=== PATIENT | male | born 1955 | race Caucasian/White ===

== ENCOUNTER → 2016-04-02 13:01 | Day surgery (SDC) | payer BC ==
[~2016-04-02 13:01] MED LIST: Buffered Lidocaine 1% SYR 3ML* 3 ML/SYR SYRINGE INTRADERM ONE; Buffered Lidocaine 1% SYR 3ML* 3 ML/SYR SYRINGE ONE; Bupivacaine 0.5% W/EPI SDV* 30 ML VIAL ONE; Dexamethasone IV* 4 MG/ML 1 ML (4 MG) ONE; DiMENhydriNATE IV* 50 MG/ML VIAL IV PUSH PRN; HYDROcodone/ACETAMIN 5-325 MG* 1 TAB PO PRN; HYDROmorphone INJ* 1 MG/ML CARPUJECT SYRINGE IV PRN; Ketorolac INJ* 30 MG/ML 1 ML VIAL ONE; Lidocaine 1% INJ* 10 MG/ML 30 ML SDV ONE; Midazolam* 1 MG/ML 5 ML VIAL (5 MG) ONE; Ondansetron INJ* 2 MG/ML VIAL IV PRN; Ondansetron INJ* 2 MG/ML VIAL ONE; Propofol* 10 MG/ML 20 ML BTL IV PUSH ONE; ceFAZolin 1 GM in Dextrose (*) 1 GM/50 ML BAG IVPB ONE; ceFAZolin 2 GM PREMIX (*) 2 GM/50 ML BAG IVPB ONE; fentaNYL* 50 MCG/ML 2 ML VIAL (100 MCG VIAL) IV PRN; fentaNYL* 50 MCG/ML 2 ML VIAL (100 MCG VIAL) ONE; oxyCODONE TAB* 5 MG TAB PO PRN
--- NOTE | 2016-04-02 15:50 | PN ---
Progress Note - Progress Note Note: Brief Op Note: Preop Dx: Umbilical Hernia Postop Dx: same Procedure: Open repair Umbilical Hernia with mesh Anesthesia: local/MAC Surgeon: Graham Asst: MELISSA Rodriguez EBL: negligible Fluids: one liter crystalloid Drains: none Findings: dictated
[2016-04-02 17:42] VITALS: BP 116/74
--- NOTE | 2016-04-03 07:04 | OP ---
DATE OF OPERATION: 04/02/16 - [facility] DATE OF : 55 SURGEON: Roberto Stevenson MD CHARGER TESTER: MELISSA Barba ANESTHESIOLOGIST: West Da Silva MD ANESTHESIA: General endotracheal. PRE-OP DIAGNOSIS: Umbilical hernia. POST-OP DIAGNOSIS: Umbilical hernia. OPERATIVE PROCEDURE: Open repair of umbilical hernia with mesh. ESTIMATED BLOOD LOSS: Minimal. IV FLUIDS: Crystalloids. SPECIMENS: None. DRAINS: None. COMPLICATIONS: None. COUNTS: Instrument, needle, and sponge counts were correct. DESCRIPTION OF PROCEDURE: The patient was brought to the operating room and placed on the table supine. Sequential compression devices were placed on both lower extremities. The patient was administered intravenous sedation. His abdomen was prepped and dapped in the usual sterile fashion. He received appropriate antibiotics and time-out was performed. Local anesthetic was infiltrated into the skin and soft tissue in the periumbilical region and a curvilinear infraumbilical incision was created. A combination of sharp and blunt dissection and cautery was used to dissect out the umbilical hernia, which was approximately 2 cm. There was some incarcerated fat within this, which was reduced. The umbilical stalk was divided from the anterior abdominal wall and the edges of the hernia defect were identified circumferentially. The Bard circular mesh was used for the repair. This was a small sized 1.7-inch mesh and this was placed into the peritoneal cavity and positioned beneath the defect and the inferior and superior fascial edges were sutured to the mesh tabs, which were then divided. I used a 0 Ti-Cron suture to secure the mesh and then closed the umbilical hernia with the same suture with a [id number] stitch. The umbilical stalk was reapproximated with 3-0 Polysorb to the anterior abdominal wall and then the skin was closed in 2 layers with 3-0 Polysorb and 4-0 Monocryl. The wound was dressed with Steri-Strips and gauze and the patient tolerated the procedure well and was transferred to recovery stable. CC: Lg Cook MD* [id number]/[facility] #: [id number] MTDD
== END | disposition home or self-care (01) ==
LOC: OR 13:01
PROVIDERS: ATTEND Surgery
DX: K42.9 Umbilical hernia without obstruction or gangrene (principal); E06.3 Autoimmune thyroiditis; I10 Essential (primary) hypertension
CPT/HCPCS: C1781; J0690; J1100; J1885; J2250; J2405; J2704; J3010

== ENCOUNTER 2016-06-22 10:31 | Emergency (ER) | payer BC ==
[2016-06-22 10:57] VITALS: BP 138/87
--- NOTE | 2016-06-22 11:03 | UC ---
Skin Complaint HPI - HPI Summary HPI Summary: The patient comes in today for: 1. Tick bite and impetigo: Onset: Tick noticed last night. He has had impetigo of the navel x 2-3 weeks. It is getting better. Palliative/provocative: Touching the area makes it worse. Quality: Soreness Region: Suprapubic and umbilical Severity: 03/26 Time: Constant. Associated symptoms: Fevers: None Discharge: None. * - History of Current Complaint Chief Complaint: UCSkin Time Seen by Provider: 06/22/16 10:43 Stated Complaint: TICK BITE/IMPETIGO Hx Obtained From: Patient - Allergy/Home Medications Allergies/Adverse Reactions: Allergies Allergy/AdvReac Type Severity Reaction Status Date / Time Pollen Extract Allergy Unknown Congestion Verified 06/22/16 10:44 Latex Allergy LATEX Verified 06/22/16 10:44 PAINT-DIFFICULTY BREATHING Home Medications: Home Medications Ibuprofen TAB* [Advil TAB*] 200 mg PO Q6H PRN 06/22/16 [History Confirmed ] Review of Systems Constitutional: Negative Skin: Rash Eyes: Negative ENT: Negative Respiratory: Negative Cardiovascular: Negative Gastrointestinal: Negative Genitourinary: Negative Neurological: Headache All Other Systems Reviewed And Are Negative: Yes PMH/Surg Hx/FS Hx/Imm Hx Previously Healthy: No Endocrine History Of: 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 Denies: Diabetes, Hyperthyroidism, Hypothyroidism, Dyslipidemia Cardiovascular History Of: Reports: Hypertension - CONTROL WITH MEDS Denies: Cardiac Disorders, Pacemaker/ICD, Myocardial Infarction, Congestive Heart Failure, Atrial Fibrillation, Deep Vein Thrombosis, Bleeding Disorders Respiratory History Of: Denies: COPD, Asthma, Bronchitis, Pneumonia, Pulmonary Embolism GI/ History Of: Denies: Gastroesophageal Reflux, Ulcer, Gastrointestinal Bleed, Gall Bladder Disease, Kidney Stones, Diverticulitis, Renal Disease, Urosepsis Neurological History Of: Denies: TIA, CVA, Dementia, Seizures, Migraine Psychological History Of: Denies: Anxiety, Depression, Bipolar Disorder, Schizophrenia, Post Traumatic Stress Disorder Cancer History Of: Denies: Lung Cancer, Colorectal Cancer, Breast Cancer, Prostate Cancer, Cervical Cancer Other History Of: Negative For: HIV, Hepatitis B, Hepatitis C, Anticoagulant Therapy - Aspirin daily. - Surgical History Surgical History: Yes Surgery Procedure, Year, and Place: tonsillectomy as a child. Hernia [facility] Apr 2016 - Family History Known Family History: Positive: Cardiac Disease, Hypertension - Social History Occupation: Employed Full-time Alcohol Use: Daily Alcohol Amount: 1 CIDER OR GLASS OF WINE NIGHTLY Substance Use Type: None Smoking Status (MU): Never Smoked Tobacco - Immunization History Most Recent Influenza Vaccination: 2015 Most Recent Tetanus Shot: UTD Most Recent Pneumonia Vaccination: None Physical Exam Triage Information Reviewed: Yes Appearance: Well-Appearing, No Pain Distress, Well-Nourished Vital Signs: Initial Vital Signs Temp 98.4 F 06/22/16 10:46 Pulse 80 06/22/16 10:46 Resp 18 06/22/16 10:46 BP 138/87 06/22/16 10:46 Pulse Ox 96 06/22/16 10:46 Vital Signs Reviewed: Yes Eyes: Positive: Conjunctiva Clear. Negative: Discharge ENT: Positive: Hearing grossly normal. Negative: Pharyngeal erythema, Nasal congestion, Nasal drainage, TM bulging, TM dull, TM red, Tonsillar swelling, Tonsillar exudate Dental: Negative: Gross Decay/Caries @, Dental Fracture @ Neck: Positive: Supple, Nontender, No Lymphadenopathy. Negative: Nuchal Rigidity Respiratory: Positive: Lungs clear, No respiratory distress, No accessory muscle use. Negative: Crackles, Wheezing Cardiovascular: Positive: RRR, No Murmur Abdomen Description: Positive: Nontender, No Organomegaly, Soft. Negative: Distended, Guarding Musculoskeletal: Positive: Strength Intact, ROM Intact Neurological: Positive: Alert, Muscle Tone Normal Psychological: Positive: Age Appropriate Behavior, Consolable Skin: Positive: breakdown - He has a 4-5 mm cyanotic/bluish lesion infraumbilical with a ring of redness about 1-2 cm around it. The navel has erosions in the creases of the navel. NO discharge of either lesion Course/Dx - Course Course Of Treatment: Patient was told of his treatment options. - Differential Diagnoses - Skin Complaint Differential Diagnoses: Cellulitis, Tick Born Illness - Diagnoses Provider Diagnoses: Tick bite. Cellulitis of the suprapubic area. impetigo Discharge - Discharge Plan Condition: Stable Disposition: HOME Patient Education Materials: Tick Bite (ED), Cellulitis (ED), Impetigo (ED) Referrals: Lg Cook MD [Primary Care Provider] - 1 Week (Please see your primary care provider later next week to see how well you are doing and to check your blood pressure. If you get worse between now and then, please be seen sooner by us, your primary care provider or ER.)
== END 2016-06-22 11:25 | disposition home or self-care (01) ==
LOC: UCEAST 10:31
DX: T14.8 Other injury of unspecified body region (principal); W57.XXXA Bitten or stung by nonvenomous insect and other nonvenomous arthropods, initial encounter; Y92.9 Unspecified place or not applicable; L01.00 Impetigo, unspecified; E06.3 Autoimmune thyroiditis; L03.311 Cellulitis of abdominal wall; I10 Essential (primary) hypertension
CPT/HCPCS: 99212; G0463

== ENCOUNTER 2018-04-22 08:35 | Emergency (ER) | payer BC ==
[2018-04-22] MEDS ORDERED: Acetaminophen TAB* 325 MG PO ONE (09:28)
[2018-04-22 09:50] LABS: Influenza A Molecular NEGATIVE (Negative); Influenza B Molecular NEGATIVE (Negative)
--- NOTE | 2018-04-22 10:09 | UC ---
FLU HPI - HPI Summary HPI Summary: 62 y/o male presents to the urgent care c/o fever, body aches, DANIELLE, productive cough w/ clear phlegm, nasal congestion w/ clear nasal discharge, sore throat since Friday night 04/19/2018. Body aches is 7/10. Pt has taken ASA and Ibuprofen PO to alleviate symptoms. His has similar symptoms. Pt denies dizziness, SOB, wheezing, chest pain, abdominal pain, N/V/D. - History of Current Complaint Chief Complaint: UCGeneralIllness Stated Complaint: FLU-LIKE SYMPTOMS Time Seen by Provider: 04/22/18 10:07 Hx Obtained From: Patient Onset/Duration: Gradual Onset, Lasting Days - 3 days, Still Present Severity Currently: Mild Severity Initially: Moderate Pain Intensity: 7 - body aches Pain Scale Used: 0-10 Numeric Associated Signs & Symptoms: Positive: Fever, T Max - 101.7F this morning, Myalgia, Cough - productive with green phlegm, Sore Throat, Nasal Congestion - clear, Headache. Negative: Vomiting, Diarrhea - Risk Factors Influenza Risk Factors: Negative - Allergy/Home Medications Allergies/Adverse Reactions: Allergies Allergy/AdvReac Type Severity Reaction Status Date / Time No Known Allergies Allergy Verified 04/22/18 08:49 PMH/Surg Hx/FS Hx/Imm Hx Previously Healthy: Yes Cardiovascular History: Hypertension Other History Of: Negative For: HIV, Hepatitis B, Hepatitis C, Anticoagulant Therapy - Aspirin daily. - Surgical History Surgical History: Yes Surgery Procedure, Year, and Place: tonsillectomy as a child. Hernia [facility] Mar/ Apr 2016 - Family History Known Family History: Positive: Cardiac Disease, Hypertension - Social History Occupation: Employed Full-time, Retired Lives: With Family Alcohol Use: Daily Alcohol Amount: 1 CIDER OR GLASS OF WINE NIGHTLY Substance Use Type: None Smoking Status (MU): Never Smoked Tobacco - Immunization History Most Recent Influenza Vaccination: 2016 Most Recent Tetanus Shot: UTD Most Recent Pneumonia Vaccination: None Review of Systems All Other Systems Reviewed And Are Negative: Yes Constitutional: Positive: Fever, Chills, Other - body aches Skin: Positive: Negative Eyes: Positive: Negative ENT: Positive: Sore Throat, Nasal Discharge - clear, Sinus Congestion, Sinus Pain/Tenderness Respiratory: Positive: Cough - porductive with clear phlegm Cardiovascular: Positive: Negative Gastrointestinal: Positive: Negative Genitourinary: Positive: Negative Motor: Positive: Negative Neurovascular: Positive: Negative Musculoskeletal: Positive: Myalgia Neurological: Positive: Headache Psychological: Positive: Negative Is Patient Immunocompromised?: No Physical Exam - Summary Physical Exam Summary: VITAL SIGNS: Reviewed. GENERAL: Patient is a well developed and nourished obese male who is sitting comfortable in the examining table. Patient is not in any acute respiratory distress. HEAD AND FACE: No signs of trauma. No ecchymosis, hematomas or skull depressions. No sinus tenderness. EYES: PERRLA, EOMI x 2, No injected conjunctiva, no nystagmus. No photophobia. EARS: Hearing grossly intact. Ear canals and tympanic membranes are within normal limits. Nose: edematous and erythematous nasal mucosa w/ clear nasal discharge. MOUTH: Positive no erythema, no tonsillar enlargement. Uvula in midline. NECK: Supple, trachea is midline, Positive anterior cervical lymphadenopathy, no JVD, no carotid bruit, no c-spine tenderness, neck with full ROM. No meningeal signs, no Kernig's or brudzinskis signs. CHEST: Symmetric, no tenderness at palpation LUNGS: Clear to auscultation bilaterally. No wheezing or crackles. CVS: Regular rate and rhythm, S1 and S2 present, no murmurs or gallops appreciated. ABDOMEN: Soft, non-tender. No signs of distention. No rebound no guarding, and no masses palpated. Bowel sounds are normal. EXTREMITIES: FROM in all major joints, no edema, no cyanosis or clubbing. NEURO: Alert and oriented x 3. No acute neurological deficits. Speech is normal and follows commands. SKIN: Dry and warm Triage Information Reviewed: Yes Vital Signs: Initial Vital Signs Temp 100.9 F 04/22/18 08:45 Pulse 86 04/22/18 08:45 Resp 17 04/22/18 08:45 BP 140/90 04/22/18 08:45 Pulse Ox 100 04/22/18 08:45 Flu Course/Dx - Course Course Of Treatment: 62 y/o male presents to the urgent care c/o fever, body aches, DANIELLE, productive cough w/ clear phlegm, nasal congestion w/ clear nasal discharge, sore throat since Friday night 04/19/2018. Body aches is 7/10. Pt has taken ASA and Ibuprofen PO to alleviate symptoms. His has similar symptoms. Pt denies dizziness, SOB, wheezing, chest pain, abdominal pain, N/V/ D. Hx obtained. Pt w/ a viral syndorme on examination. Rapid Strep: negative, Influenza A&B: negative. However Pt is febrile: 100.8F with a lot of body aches. Pt given Tylenol PO to alleviate symptoms. Pt will br tx as influenza. Pt Rx Tamiflu and ibuprofen PO to alleviates symptoms. Advised on hand washing and wear a mask to avoid spreading. Pt advised to rest, increase fluid intake, eat well and avoid strenuous exercise. If symptoms do not improve or worsen advised to return to the urgent care or f/u with his PCP for further evaluation and treatment. Pt's BP is elevated today advised to decrease salt in diet, monitor BP and f/u with PCP for further management.Pt understood and agreed with plan of care. - Differential Dx/Diagnosis Differential Diagnosis/HQI/PQRI: Bronchitis, Influenza, Pneumonia, Upper Respiratory Infection Provider Diagnosis: Viral syndrome, Uncontrolled hypertension Discharge - Sign-Out/Discharge Documenting (check all that apply): Patient Departure - d/c home All imaging exams completed and their final reports reviewed: No Studies - Discharge Plan Condition: Stable Disposition: HOME Prescriptions: Ibuprofen TAB* [Motrin TAB* 600 MG] 600 mg PO Q6H PRN #30 tab PRN Reason: Pain Oseltamivir CAP* [Tamiflu CAP*] 75 mg PO BID #10 cap Patient Education Materials: Viral Syndrome (ED) Referrals: Lg Cook MD [Primary Care Provider] - 3 Days Additional Instructions: 1- Please take the full course of the antiviral to avoid resistance. Encourage hand washing and wear a mask to avoid spreading. 2-Please Take Ibuprofen PO q6-8hrs prn as instructed after meals to alleviate fever, and sore throat. Increase fluid intake, eat well, rest and avoid strenuous exercise 3-If symptoms do not improve or worsen please return to the urgent care or f/u with your PCP in 2 days for further evaluation and treatment. 4- Your BP is elevated today. please decrease salt in your diet, monitor BP and if it continues to be elevated please f/u with your PCP for further management. - Billing Disposition and Condition Condition: STABLE Disposition: Home - Attestation Statements Provider Attestation: I was available for consult. This patient was seen by the RODOLFO. The patient was not presented to, seen by, or examined by me. -Jayce
[2018-04-22 10:58] VITALS: BP 129/73
== END 2018-04-22 10:56 | disposition home or self-care (01) ==
LOC: UCEAST 08:35
DX: B34.9 Viral infection, unspecified (principal); I10 Essential (primary) hypertension
CPT/HCPCS: 87651; 99212; A9270-GY; G0463